=== PATIENT | male | born 1970 | race Caucasian/White ===

== ENCOUNTER 2017-09-21 20:45 | Emergency (ER) | payer BC ==
[~2017-09-21] VITALS: Ht 177.8 cm; Wt 68.0 kg
--- NOTE | 2017-09-21 21:00 | NUR ---
ARRIVAL PT AMBULATED FAIRLY WELL TO RM 3 ACCOMPANIED BY A FRIEND. PT IS MARKEDLY PALE. TACHYPNEIC. ALERT AND COOP. PLACED ON MONITOR AND TRIAGE DONE
[2017-09-21] MEDS ORDERED: NS 1000ML 1,000 ML ONE ×2 (21:03→21:53)
--- NOTE | 2017-09-21 21:05 | NUR ---
TREATMENT PIV INSERTED BY KIZZY CHRIS WHILE PT TRIAGED BY THIS RN. CULTURE OBTAINED OF SEROSANGIONOUS FLUID DISCHARGING FROM LEFT THORAX ICD SITE. SM PUNCTURE SIZE HOLE NOTED AT THE BOTTOM OF THE SURGICAL WOUND.
[2017-09-21 21:14] VITALS: BP 128/82
--- NOTE | 2017-09-21 21:26 | PCM.EKG ---
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
[2017-09-21] MEDS ORDERED: NS 1000ML 1,000 ML IV ONE ×4 (21:30→23:30)
--- NOTE | 2017-09-21 21:30 | NUR ---
MED NS STARTED TO RUN WIDE OPEN. PIV INFUSING WITH NO SIGN OF INFECTION OR INFILTRATE NOTED
[2017-09-21 21:32] LABS: BASOPHIL % 0.1 % (0.0-0.2); HEMOGLOBIN 10.1 g/dL (13.9-16.3); LYMPHOCYTES % 6.9 % (24.0-44.0); MEAN CELL HGB 28.5 pg (26-34); MEAN CELL HGB CONCENTRATION 31.8 g/dL (33-37); MEAN CORP VOLUME 89.6 fL (78-100); MONOCYTES # 1.2 10^3/uL (0.3-0.8); MONOCYTES % 8.3 % (5.0-12.0); NEUTROPHIL # 12.1 10^3/uL (1.8-7.7); NEUTROPHILS % 82.9 % (41.0-85.0); RED CELL DISTRIBUTION WIDTH 13.8 % (11.5-14.5); WHITE BLOOD CELL 14.6 10^3/uL (4.5-11.0)
[2017-09-21 21:45] LABS: ABG PH 7.452 (7.350-7.450); BE(B) -5.7 mmol/L (-2.0-2.0); HCO3act 17.7 mmol/L (22.0-26.0)
[2017-09-21] MEDS ORDERED: ROCEPHIN ONE (21:53)
[2017-09-21] MEDS ORDERED: NS 100ML 100 ML IV ONE (21:53)
--- NOTE | 2017-09-21 21:55 | NUR ---
TREATMENT PT SPO2 88 - 89 ON ROOM AIR. O2 PLACED ON PT AT 3LPM VIA NC. INFORMED
[2017-09-21 21:58] LABS: CALCIUM 8.4 mg/dL (8.4-10.5); CARBON DIOXIDE 20.1 mmol/L (20.0-32)
[2017-09-21 22:00] VITALS: BP 113/80
[2017-09-21 22:02] LABS: ANISOCYTOSIS 1+ (NEGATIVE); LYMPHOCYTE 10 % (25-36); MONOCYTE 8 % (3-9); SEGMENTED NEUTROPHILS 82 % (31-76)
--- NOTE | 2017-09-21 22:10 | NUR ---
GRIFFIN RICE HUNG TO RUN OVER APPROX 15MIN. 1G MIXED WITH 100ML
--- NOTE | 2017-09-21 22:11 | DIREP ---
PROCEDURE:CHEST 1 VIEW COMPARISON:[facility], CR, XRAY CHEST SINGLE VW, 03/05/2017, 08:32 AM. INDICATIONS:PAIN FINDINGS: LUNGS/PLEURA:Dense airspace opacities throughout the right mid and right lower lung consistent with pneumonia. The left lung is clear. No definite pleural effusion. VASCULATURE:Normal. Unremarkable pulmonary vasculature. CARDIAC:Borderline cardiomegaly. Left-sided ICD. MEDIASTINUM:Normal. No visible mass or adenopathy. BONES:Normal. No fracture or visible bony lesion. OTHER:Negative. CONCLUSION: 1. Dense airspace opacities throughout the right mid and right lower lung consistent with pneumonia. 2. Left-sided ICD. Dictated by: Collin Mcdonnell MD on 09/21/2017 at 10:08 PM
[2017-09-21] MEDS ORDERED: NS 250ML 250 ML IV ONE (22:16)
[2017-09-21] MEDS ORDERED: ROCEPHIN 1,000 MG in NS 100ML 100 ML IV ONE (22:30)
[2017-09-21] MEDS ORDERED: ZITHROMAX 500 MG in NS 250ML 250 ML IV SCH (22:30)
--- NOTE | 2017-09-21 22:30 | NUR ---
MED NEW BAG NS HUNG TO RUN AT 500ML/HR. PT ALERT AND COOP. NO ADVERSE REACTION NOTED.
--- NOTE | 2017-09-21 22:30 | NUR ---
MED 500MG ZITHROMYCIN HUNG TO RUN OVER 1 HOUR. PT ALERT AND COOP. CONT TO BE TACHYPNEIC WITH FREQUENT COUGH NOTED.
--- NOTE | 2017-09-21 22:31 | ER.PDOC ---
General Chief Complaint: General Complaint Stated Complaint: ICD LEAKING,CONFUSION,COUGH TRAVEL OUT OF US: No Time seen by MD: 21:15 Source: patient, family History of Present Illness Initial Comments Pt with pmh of CHF s/p Defibrillator implantation presents with fever,cough x 5 days. Timing/Duration: 1 week Severity: moderate Associated Symptoms: cough, fever/chills, shortness of breath Allergies: Coded Allergies: No Known Allergies (Unverified , 01/13/17) Home Meds No Active Prescriptions or Reported Meds Past Medical History Medical History: arrhythmia, GERD, heart attack, hypertension Surgical History: knee, pacemaker/ICD Family History Significant Family History: no pertinent family hx Social History Smoking: non-smoker Alcohol Use: none Drug Use: none Review of Systems Constitutional: chills, fever EENTM: no symptoms reported Respiratory: cough, shortness of breath Cardiovascular: no symptoms reported Gastrointestinal: no symptoms reported Genitourinary: no symptoms reported Musculoskeletal: no symptoms reported Physical Exam General Appearance: Moderate Distress, Other (tachypnoeic) EENT: eyes nml inspection, nml ENT inspection, pharynx nml Neck: Non-Tender, Full Range of Motion, Supple, Normal Inspection Respiratory: chest non-tender, respiratory distress, rales, other (Rt hemithorax. 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 as Tested, No Motor/Sensory Deficits, Alert, Normal Mood/Affect, Oriented x 3 Skin: Warm/Dry, Other (pale) Lymphatic: No Adenopathy Results/Orders Results/Orders Laboratory Tests Test 09/21/17 21:15 09/21/17 21:24 09/21/17 21:34 White Blood Count 14.6 10^3/uL (4.5-11.0) Red Blood Count 3.55 10^6/uL (4.50-5.90) Hemoglobin 10.1 g/dL (13.9-16.3) Hematocrit 31.8 % (37.0-53.0) Mean Corpuscular Volume 89.6 fL (78-100) Mean Corpuscular Hemoglobin 28.5 pg (26-34) Mean Corpuscular Hemoglobin Concent 31.8 g/dL (33-37) Red Cell Distribution Width 13.8 % (11.5-14.5) Platelet Count 147 10^3/uL (150-400) Mean Platelet Volume 12.0 fL (7.8-11.0) Neutrophils (%) (Auto) 82.9 % (41.0-85.0) Lymphocytes (%) (Auto) 6.9 % (24.0-44.0) Monocytes (%) (Auto) 8.3 % (5.0-12.0) Neutrophils # (Auto) 12.1 10^3/uL (1.8-7.7) Lymphocytes # (Auto) 1.0 10^3/uL (1.0-4.8) Monocytes # (Auto) 1.2 10^3/uL (0.3-0.8) Absolute Immature Granulocyte (auto 0.26 10^3 u/L (0-2) Eosinophils % 0.0 % (0.0-5.0) Basophils % 0.1 % (0.0-0.2) Basophils # 0.0 10^3/uL (0.0-0.1) Eosinophil Count 0.0 10^3/uL (0.0-0.2) Prothrombin Time 10.7 SEC (9.8-11.9) Prothrombin Time INR (Non-Therap) 1.1 Activated Partial Thromboplast Time 39.9 SEC (24.67-30.72) D-Dimer 6.76 mg/L (0.19-0.49) Sodium Level 132 mmol/L (132-145) Potassium Level 4.3 mmol/L (3.6-5.2) Chloride Level 97.0 mmol/L (96-109) Carbon Dioxide Level 20.1 mmol/L (20.0-32) Anion Gap 19.2 Blood Urea Nitrogen 33 mg/dL (7-18) Creatinine 1.73 mg/dL (0.59-1.40) Estimated GFR () 51.3 (>/=60) BUN/Creatinine Ratio 19.0 Glucose Level 102 mg/dL (70-110) Calcium Level 8.4 mg/dL (8.4-10.5) Total Bilirubin 1.7 mg/dL (0.2-1.0) Aspartate Amino Transf (AST/SGOT) 39 U/L (0-35) Alanine Aminotransferase (ALT/SGPT) 27 U/L (12-78) Alkaline Phosphatase 57 U/L (50-136) Total Creatine Kinase 69 U/L (39-308) Creatine Kinase MB 0.1 ng/mL (0.5-3.6) Troponin I 0.05 ng/mL (0.00-0.05) Total Protein 7.1 g/dL (6.4-8.2) Albumin 2.8 g/dL (3.4-5.0) Globulin 4.3 Percent Immature Gran (Cell Imm) 1.80 % (0.00-0.50) Blood Gas Sample Site RT RADIAL ARTERY Blood Gas pH 7.452 (7.350-7.450) Blood Gas PCO2 25.0 mmHg (35.0-45.0) Blood Gas PO2 61.0 mmHg (75.0-100.0) Blood Gas HCO3 17.7 mmol/L (22.0-26.0) Blood Gas Base Excess -5.7 mmol/L (-2.0-2.0) Jhony Test POSITIVE Arterial Blood Oxygen Saturation 90.9 % (95-) Carboxyhemoglobin 0.4 % (0.5-1.5) Methemoglobin 0.4 % (0.2-0.6) Total Hemoglobin 9.9 % (13.5-17.5) Lactic Acid (Blood Gas) 2.6 MMOL/L (0.5-1.0) Blood Gas Temperature Oxygen Delivery Method (LAB) RA FiO2 21 % (20-101) Bicarbonate 17.8 mmol/L (23-27) Differential Total Cells Counted 100 #CELLS Segmented Neutrophils 82 % (31-76) Lymphocytes 10 % (25-36) Monocytes 8 % (3-9) Platelet Estimate ADEQUATE Platelet Morphology NORMAL Anisocytosis 1+ (NEGATIVE) Macrocytosis 1+ (NEGATIVE) Administered Medications Medications (Trade) Dose Ordered Sig/[place] Route PRN Reason Start Time Stop Time Status Last Admin Dose Admin Sodium Chloride 1,000 ml @ 0 mls/hr Q0M ONCE IV 09/21/17 21:30 09/21/17 21:31 DC 09/21/17 21:41 Ceftriaxone Sodium 1000 mg/ Sodium Chloride 100 ml @ 100 mls/hr STAT ONCE IV 09/21/17 22:30 09/21/17 23:29 09/21/17 22:08 Sodium Chloride 1,000 ml @ 0 mls/hr Q0M ONCE IV 09/21/17 23:30 09/21/17 23:31 09/21/17 22:05 Azithromycin 500 mg/Sodium Chloride 250 ml @ 175 mls/hr STAT IV 09/21/17 22:30 10/21/17 22:29 09/21/17 22:32 Albuterol/ Ipratropium (Duoneb 0.5 Mg-3 Mg/3 ml Soln) 3 ml STAT STAT IH 09/21/17 22:33 09/21/17 22:34 DC 09/21/17 22:48 Progress Progress AB.45///17 RA Lac 2.6 CMP: Internal Medicine Nurse Practitioner-1.73, BUN-33 AST-39. CBC: wbc-14.6, Hb-10.1 CXR- Rt Pneumonia. Departure Time of Disposition: 23:11 Disposition: 05 DISCH/XFER OTHER (Transfer to [facility] Impression: Primary Impression: Pneumonia Additional Impression: Wound infection Condition: Stable Referrals: TANVI SANTILLAN (PCP) PRIMARY CARE PROVIDER Scripts No Active Prescriptions or Reported Meds Comments Dr Freedman accepted patient transfer to [facility], [place], operated by [facility] in [place] Duration or Time Spent with Pa: 60mins ANDREY YING MD Sep 21, 2017 22:31
[2017-09-21] MEDS ORDERED: DUONEB 0.5 MG-3 MG/3 ML SOLN IH STA (22:33)
--- NOTE | 2017-09-21 22:37 | NUR ---
Dr. Fabian Left message with Dr. Fabian
[2017-09-21] MEDS ORDERED: DUONEB 0.5 MG-3 MG/3 ML SOLN IH ONE (22:44)
--- NOTE | 2017-09-21 22:50 | NUR ---
MD DR BELL REFUSES CARE. [facility] CALLED. NO ROOMS AVAILABLE IN ICU AND MED SURG PTS BEING HELD IN THE ED.
--- NOTE | 2017-09-21 22:55 | NUR ---
[facility]FER [facility] CALLED AND SUMMARY GIVEN TO ONE CALL. THEY STATE THEY WILL CALL BACK WITH ACCEPTANCE OR DENIAL
[2017-09-21 22:56] VITALS: BP 105/65
--- NOTE | 2017-09-21 23:06 | NUR ---
XFER TRANSFER SECURED WITH [facility]
--- NOTE | 2017-09-21 23:15 | NUR ---
LAB FLU OBTAINED PER [facility] REQUEST. ONCE RESULTS RECEIVED PT WILL BE TRANSPORTED TO [facility]
[2017-09-22] VITALS: BP 114/78
--- NOTE | 2017-09-22 | NUR ---
TREATMENT 16FR MEDRANO PLACED USING STERILE TECHNIQUE. NO ADVERSE REACTION NOTED. PRODUCTIVE APPROX 100ML OF HENNY URINE. SPECIMEN COLLECTED AND SENT TO LAB
[2017-09-22 00:09] LABS: BILIRUBIN,URINE NEGATIVE (NEGATIVE); UROBILINOGEN,URINE NORMAL (NEGATIVE)
[2017-09-22 00:22] LABS: APPEARANCE,URINE CLEAR (CLEAR); UA COLOR YELLOW (YELLOW); WBC,URINE 0-2 WBC/HPF (0-2)
[2017-09-22 00:30] VITALS: BP 121/64
--- NOTE | 2017-09-22 00:30 | NUR ---
DISCHARGE PTS CARE TRANSFERRED TO [facility]. REPORT GIVEN TO [facility]
== END 2017-09-22 00:21 | disposition short-term general hospital (02) ==
LOC: ER 20:45
DX: T85.79XA Infection and inflammatory reaction due to other internal prosthetic devices, implants and grafts, initial encounter (principal); J18.9 Pneumonia, unspecified organism; I11.0 Hypertensive heart disease with heart failure; I50.9 Heart failure, unspecified; I25.2 Old myocardial infarction; K21.9 Gastro-esophageal reflux disease without esophagitis; Z95.810 Presence of automatic (implantable) cardiac defibrillator; K43.9 Ventral hernia without obstruction or gangrene; Y71.8 Miscellaneous cardiovascular devices associated with adverse incidents, not elsewhere classified; Y92.89 Other specified places as the place of occurrence of the external cause
CPT/HCPCS: 36415; 71045; 80053; 81000; 82550; 82553; 82803; 84484; 85025; 85379; 85610; 85730; 86710; 87040 ×2; 87070; 87077; 87186; 93005; 94640; 96365; 96366; 96367; 99285; J0696 ×2; J7030 ×2; J7050 ×3; J7620